=== PATIENT | female | born 1965 | race African-American/Black ===

== ENCOUNTER 2017-11-23 01:02 | Inpatient (IN) ==
[2017-11-23] MEDS ORDERED: GLUCAGON 1 MG VIAL IM PRN (02:41)
[2017-11-23] MEDS ORDERED: ACETAMINOPHEN 325 MG TABLET PO PRN (02:41)
[2017-11-23] MEDS ORDERED: DEXTROSE 50% 25 GM/50 ML VIAL IV PRN (02:41)
[2017-11-23] MEDS ORDERED: hydrALAZINE 20 MG/1 ML VIAL IV PRN (03:03)
[2017-11-23 03:30] LABS: Basophils % 0.3 % (0.0-0.8); Eosinophils # 0.1 10*3/uL (0.0-0.87); Eosinophils % 1.5 % (0.00-10.9); Hematocrit 34.2 VOL% (35.7-47.0); Hemoglobin 10.7 GM/DL (12.0-16.0); Immature Granulocytes % 0.3 %; Immature Granulocytes Absolute 0.03 #; Lymphocytes # 2.9 10*3/uL (1.4-4.0); Lymphocytes % 32.8 % (21.3-54.2); Mean Corpuscular HGB Conc 31.3 GM/DL (32-36); Mean Corpuscular Hemoglobin 28 PG (27-34); Mean Corpuscular Volume 89.5 FL (87-102); Monocytes # 0.5 10*3/uL (0.11-0.8); Monocytes % 6.1 % (1.7-12.7); Neutrophils # 5.2 10*3/uL (1.4-7.4); Platelet Count 296 T/CUMM (130-400); Red Blood Count 3.82 MC/CUMM (3.8-5.5); Red Cell Distribution Width 13.2 % (9.3-17.3); White Blood Count 8.9 T/CUMM (4-12)
[2017-11-23 03:43] LABS: Calcium 8.5 MG/DL (8.5-10.1); Osmolality,Calculated 291.4 MOS/KG (273-304); Potassium 4.2 MMOL/L (3.5-5.1)
[2017-11-23] MEDS ORDERED: LOSARTAN 50 MG TABLET PO SCH (09:00)
[2017-11-23] MEDS ORDERED: LABETALOL 200 MG TABLET PO SCH ×2 (09:00→09:30)
[2017-11-23] MEDS: GABAPENTIN 400 MG CAPSULE PO SCH ×2 (09:15→21:19)
[2017-11-23] MEDS: PANTOPRAZOLE 40 MG TABLET PO SCH (09:15)
[2017-11-23] MEDS: hydroCHLOROthiazide 25 MG TABLET PO SCH (09:15)
[2017-11-23] MEDS: FERROUS SULFATE 325 MG TABLET PO SCH ×2 (09:16→21:19)
[2017-11-23] MEDS ORDERED: FUROSEMIDE 20 MG TABLET PO SCH (14:00)
[2017-11-23] MEDS: LABETALOL 100 MG/20 ML VIAL IV PRN ×2 (17:08→23:49)
[2017-11-23] MEDS: ALPRAZolam 0.25 MG TABLET PO PRN (17:49)
[2017-11-23] MEDS ORDERED: cloNIDine 0.1 MG/24 HR PATCH TRANSDERM SCH (20:00)
[2017-11-23] MEDS ORDERED: INSULIN GLARGINE 100 UNIT/ML SUBCUT SCH (21:00)
[2017-11-23] MEDS: LABETALOL 200 MG TABLET PO SCH (21:19)
[2017-11-24 00:58] LABS: Calcium 8.6 MG/DL (8.5-10.1); Potassium 4.2 MMOL/L (3.5-5.1)
[2017-11-24 06:28] LABS: Calcium 8.8 MG/DL (8.5-10.1); Osmolality,Calculated 287.4 MOS/KG (273-304); Potassium 4.2 MMOL/L (3.5-5.1)
[2017-11-24] MEDS: XIGDUO PO SCH (09:41)
[2017-11-24] MEDS: hydroCHLOROthiazide 25 MG TABLET PO SCH (09:42)
[2017-11-24] MEDS: LABETALOL 200 MG TABLET PO SCH ×3 (09:42→21:53)
[2017-11-24] MEDS: GABAPENTIN 400 MG CAPSULE PO SCH ×2 (09:42→21:52)
[2017-11-24] MEDS: FERROUS SULFATE 325 MG TABLET PO SCH ×2 (09:42→21:53)
[2017-11-24] MEDS: IRBESARTAN 150 MG TABLET PO SCH (10:00)
[2017-11-24] MEDS: PANTOPRAZOLE 40 MG TABLET PO SCH (10:00)
[2017-11-24] MEDS: ONDANSETRON 4 MG/2 ML VIAL IV PRN (12:55)
[2017-11-24] MEDS: MINOXIDIL 2.5 MG TABLET PO SCH (13:24)
[2017-11-24] MEDS ORDERED: SODIUM CHLORIDE 0.9% 500 ML IV ONE (19:08)
[2017-11-24] MEDS: INSULIN GLARGINE 100 UNIT/ML SUBCUT SCH (21:51)
[2017-11-25 04:57] LABS: Basophils % 0.1 % (0.0-0.8); Eosinophils # 0.1 10*3/uL (0.0-0.87); Eosinophils % 1.7 % (0.00-10.9); Hematocrit 31.7 VOL% (35.7-47.0); Immature Granulocytes % 0.4 %; Immature Granulocytes Absolute 0.03 #; Lymphocytes # 2.1 10*3/uL (1.4-4.0); Lymphocytes % 27.1 % (21.3-54.2); Mean Corpuscular HGB Conc 31.5 GM/DL (32-36); Mean Corpuscular Hemoglobin 28 PG (27-34); Mean Corpuscular Volume 89.8 FL (87-102); Mean Platelet Volume 11.8 FL (9.6-12.0); Monocytes # 0.4 10*3/uL (0.11-0.8); Monocytes % 5.4 % (1.7-12.7); Neutrophils # 4.9 10*3/uL (1.4-7.4); Neutrophils % 65.3 % (38.7-73.9); Platelet Count 265 T/CUMM (130-400); Red Blood Count 3.53 MC/CUMM (3.8-5.5); White Blood Count 7.6 T/CUMM (4-12)
[2017-11-25 05:21] LABS: Calcium 8.4 MG/DL (8.5-10.1); Osmolality,Calculated 291.4 MOS/KG (273-304); Potassium 4.6 MMOL/L (3.5-5.1)
[2017-11-25 05:25] LABS: % Iron Saturation 14.8 % (18-50); Ferritin 118.5 ng/ml (8-252)
[2017-11-25 05:35] LABS: Folate 14.7 NG/ML (5.4-24.0); Vitamin B12 514 PG/ML (211-911)
[2017-11-25 07:51] LABS: Apearance,Urine CLOUDY (Clear); Bilirubin,Urine Negative (Negative); Blood, Urine Negative (Negative); Glucose,Urine (UA) >=500 mg/dL (Negative); Ketones,Urine Negative (Negative); Mucus,Urine Occasional /LPF (Occasional); Nitrite,Urine Negative (Negative); Protein,Urine >=500 MG/DL; Squamous Epithelial Cell,Urine Occasional /HPF (0-10); Urine Color Yellow (Yellow); Urine Specific Gravity 1.015 (1.001-1.035); Urine Urobilinogen < 2.0 EU/DL (0.2-1.0); WBC,Urine <1 /HPF (0-6)
[2017-11-25] MEDS: XIGDUO PO SCH (08:46)
[2017-11-25 08:47] LABS: Hemoglobin A1 (Alkaline) 96.9 % (96.5-98.5); Hemoglobin A2 (Alkaline) 3.1 % (1.5-3.5)
[2017-11-25] MEDS: PANTOPRAZOLE 40 MG TABLET PO SCH (08:47)
[2017-11-25] MEDS: FERROUS SULFATE 325 MG TABLET PO SCH ×2 (08:47→20:50)
[2017-11-25] MEDS: GABAPENTIN 400 MG CAPSULE PO SCH ×2 (08:51→20:51)
[2017-11-25] MEDS: IRBESARTAN 150 MG TABLET PO SCH (08:51)
[2017-11-25] MEDS: LABETALOL 200 MG TABLET PO SCH ×3 (08:51→20:50)
[2017-11-25] MEDS: MINOXIDIL 2.5 MG TABLET PO SCH (08:51)
[2017-11-25 08:52] LABS: Sedimentation Rate-Westergren 85 MM/HR (0-20)
[2017-11-25] MEDS: INSULIN GLARGINE 100 UNIT/ML SUBCUT SCH (21:03)
[2017-11-26 05:09] LABS: Basophils % 0.2 % (0.0-0.8); Eosinophils # 0.2 10*3/uL (0.0-0.87); Eosinophils % 1.7 % (0.00-10.9); Hematocrit 31.2 VOL% (35.7-47.0); Hemoglobin 9.7 GM/DL (12.0-16.0); Immature Granulocytes % 1.1 %; Lymphocytes # 2.2 10*3/uL (1.4-4.0); Lymphocytes % 25.3 % (21.3-54.2); Mean Corpuscular HGB Conc 31.1 GM/DL (32-36); Mean Corpuscular Hemoglobin 28 PG (27-34); Mean Corpuscular Volume 90.2 FL (87-102); Monocytes # 0.5 10*3/uL (0.11-0.8); Monocytes % 6.1 % (1.7-12.7); Neutrophils # 5.7 10*3/uL (1.4-7.4); Neutrophils % 65.6 % (38.7-73.9); Platelet Count 278 T/CUMM (130-400); Red Blood Count 3.46 MC/CUMM (3.8-5.5); White Blood Count 8.8 T/CUMM (4-12)
[2017-11-26 05:33] LABS: Calcium 8.1 MG/DL (8.5-10.1); Osmolality,Calculated 290.7 MOS/KG (273-304); Potassium 4.5 MMOL/L (3.5-5.1)
[2017-11-26] MEDS: PANTOPRAZOLE 40 MG TABLET PO SCH (08:41)
[2017-11-26] MEDS: hydroCHLOROthiazide 25 MG TABLET PO SCH (08:42)
[2017-11-26] MEDS: XIGDUO PO SCH (08:42)
[2017-11-26] MEDS: GABAPENTIN 400 MG CAPSULE PO SCH ×2 (08:42→20:09)
[2017-11-26] MEDS: FERROUS SULFATE 325 MG TABLET PO SCH ×2 (08:42→20:09)
[2017-11-26] MEDS: METOPROLOL SUCCINATE XL 100 MG TABLET PO SCH (08:42)
[2017-11-26] MEDS: IRBESARTAN 150 MG TABLET PO SCH (09:45)
[2017-11-26] MEDS: SODIUM CHLORIDE 0.45% 1,000 ML IV SCH ×2 (10:06→23:58)
[2017-11-26] MEDS: INSULIN REGULAR 100 UNIT/ML SUBCUT SCH ×3 (12:17→20:08)
[2017-11-26] MEDS: INSULIN GLARGINE 100 UNIT/ML SUBCUT SCH (20:08)
[2017-11-27 04:53] LABS: Calcium 8.3 MG/DL (8.5-10.1); Osmolality,Calculated 290.4 MOS/KG (273-304); Potassium 4.1 MMOL/L (3.5-5.1)
[2017-11-27] MEDS: INSULIN REGULAR 100 UNIT/ML SUBCUT SCH ×4 (08:07→21:35)
[2017-11-27] MEDS ORDERED: OLMESARTAN 20 MG TABLET PO SCH (09:00)
[2017-11-27] MEDS: FERROUS SULFATE 325 MG TABLET PO SCH ×2 (09:59→21:33)
[2017-11-27] MEDS: GLIMEPIRIDE 2 MG TABLET PO SCH (09:59)
[2017-11-27] MEDS: hydroCHLOROthiazide 25 MG TABLET PO SCH (09:59)
[2017-11-27] MEDS: METOPROLOL SUCCINATE XL 100 MG TABLET PO SCH (09:59)
[2017-11-27] MEDS: PANTOPRAZOLE 40 MG TABLET PO SCH (09:59)
[2017-11-27] MEDS: GABAPENTIN 400 MG CAPSULE PO SCH ×2 (10:00→21:33)
[2017-11-27] MEDS: ONDANSETRON 4 MG/2 ML VIAL IV PRN (11:05)
[2017-11-27] MEDS: INSULIN GLARGINE 100 UNIT/ML SUBCUT SCH (21:36)
[2017-11-28] MEDS ORDERED: MAGNESIUM HYDROXIDE SUSP 30 ML UDCUP PO ONE (00:53)
[2017-11-28 05:25] LABS: Calcium 8.3 MG/DL (8.5-10.1); Osmolality,Calculated 283.7 MOS/KG (273-304); Potassium 4.6 MMOL/L (3.5-5.1)
[2017-11-28] MEDS: INSULIN REGULAR 100 UNIT/ML SUBCUT SCH ×4 (07:59→21:41)
[2017-11-28] MEDS: FERROUS SULFATE 325 MG TABLET PO SCH ×2 (09:02→21:41)
[2017-11-28] MEDS: PANTOPRAZOLE 40 MG TABLET PO SCH (09:02)
[2017-11-28] MEDS: METOPROLOL SUCCINATE XL 100 MG TABLET PO SCH (09:02)
[2017-11-28] MEDS: GABAPENTIN 400 MG CAPSULE PO SCH ×2 (09:02→21:39)
[2017-11-28] MEDS: GLIMEPIRIDE 2 MG TABLET PO SCH (09:02)
[2017-11-28] MEDS: cloNIDine 0.1 MG TABLET PO PRN (19:50)
[2017-11-28] MEDS: VALSARTAN 160 MG TABLET PO SCH (21:43)
[2017-11-28] MEDS: INSULIN GLARGINE 100 UNIT/ML SUBCUT SCH (21:53)
[2017-11-28] MEDS: ALPRAZolam 0.25 MG TABLET PO PRN (21:55)
[2017-11-29] MEDS: cloNIDine 0.1 MG TABLET PO PRN ×2 (00:14→04:15)
[2017-11-29] MEDS: ALPRAZolam 0.25 MG TABLET PO PRN (04:16)
[2017-11-29] MEDS: GABAPENTIN 400 MG CAPSULE PO SCH ×2 (08:34→22:30)
[2017-11-29] MEDS: GLIMEPIRIDE 2 MG TABLET PO SCH (08:34)
[2017-11-29] MEDS: FERROUS SULFATE 325 MG TABLET PO SCH ×2 (08:35→22:29)
[2017-11-29] MEDS: PANTOPRAZOLE 40 MG TABLET PO SCH (08:35)
[2017-11-29] MEDS: VALSARTAN 160 MG TABLET PO SCH (08:35)
[2017-11-29] MEDS: METOPROLOL SUCCINATE XL 100 MG TABLET PO SCH (08:35)
[2017-11-29] MEDS ORDERED: CARVEDILOL 25 MG TABLET PO ONE (15:04)
[2017-11-29] MEDS ORDERED: LABETALOL 100 MG/20 ML VIAL IV ONE ×2 (15:05→18:06)
[2017-11-29] MEDS: FUROSEMIDE 40 MG TABLET PO SCH (15:57)
[2017-11-29] MEDS: MINOXIDIL 2.5 MG TABLET PO SCH (15:57)
[2017-11-29] MEDS: INSULIN REGULAR 100 UNIT/ML SUBCUT SCH ×4 (15:58→22:30)
[2017-11-29] MEDS: CARVEDILOL 25 MG TABLET PO SCH (22:30)
[2017-11-29] MEDS: INSULIN GLARGINE 100 UNIT/ML SUBCUT SCH (22:30)
[2017-11-30 04:46] LABS: Basophils % 0.3 % (0.0-0.8); Eosinophils # 0.2 10*3/uL (0.0-0.87); Eosinophils % 2.2 % (0.00-10.9); Hemoglobin 10.5 GM/DL (12.0-16.0); Immature Granulocytes % 0.3 %; Immature Granulocytes Absolute 0.02 #; Lymphocytes # 2.3 10*3/uL (1.4-4.0); Lymphocytes % 31.7 % (21.3-54.2); Mean Corpuscular HGB Conc 32.8 GM/DL (32-36); Mean Corpuscular Hemoglobin 28 PG (27-34); Mean Corpuscular Volume 85.3 FL (87-102); Mean Platelet Volume 12.3 FL (9.6-12.0); Monocytes # 0.6 10*3/uL (0.11-0.8); Monocytes % 8.5 % (1.7-12.7); Neutrophils # 4.2 10*3/uL (1.4-7.4); Platelet Count 304 T/CUMM (130-400); Red Blood Count 3.75 MC/CUMM (3.8-5.5); Red Cell Distribution Width 12.7 % (9.3-17.3); White Blood Count 7.3 T/CUMM (4-12)
[2017-11-30 05:22] LABS: Calcium 8.7 MG/DL (8.5-10.1); Osmolality,Calculated 291.3 MOS/KG (273-304); Potassium 4.1 MMOL/L (3.5-5.1)
[2017-11-30] MEDS: CARVEDILOL 25 MG TABLET PO SCH ×2 (10:04→21:18)
[2017-11-30] MEDS: PANTOPRAZOLE 40 MG TABLET PO SCH (10:05)
[2017-11-30] MEDS: MINOXIDIL 2.5 MG TABLET PO SCH (10:05)
[2017-11-30] MEDS: FUROSEMIDE 40 MG TABLET PO SCH (10:05)
[2017-11-30] MEDS: FERROUS SULFATE 325 MG TABLET PO SCH ×2 (10:05→21:18)
[2017-11-30] MEDS: GLIMEPIRIDE 2 MG TABLET PO SCH (10:05)
[2017-11-30] MEDS: GABAPENTIN 400 MG CAPSULE PO SCH ×2 (10:06→21:18)
[2017-11-30] MEDS: INSULIN REGULAR 100 UNIT/ML SUBCUT SCH ×3 (13:33→21:18)
[2017-11-30] MEDS: INSULIN GLARGINE 100 UNIT/ML SUBCUT SCH (21:19)
[2017-12-01 05:47] LABS: Calcium 8.6 MG/DL (8.5-10.1); Osmolality,Calculated 293.3 MOS/KG (273-304); Potassium 4.2 MMOL/L (3.5-5.1)
[2017-12-01] MEDS: CARVEDILOL 25 MG TABLET PO SCH ×2 (08:53→21:04)
[2017-12-01] MEDS: FERROUS SULFATE 325 MG TABLET PO SCH ×2 (08:54→21:04)
[2017-12-01] MEDS: FUROSEMIDE 40 MG TABLET PO SCH (08:54)
[2017-12-01] MEDS: PANTOPRAZOLE 40 MG TABLET PO SCH (08:55)
[2017-12-01] MEDS: GABAPENTIN 400 MG CAPSULE PO SCH ×2 (08:59→21:04)
[2017-12-01] MEDS: MINOXIDIL 2.5 MG TABLET PO SCH ×2 (08:59→12:36)
[2017-12-01] MEDS: GLIMEPIRIDE 2 MG TABLET PO SCH (09:05)
[2017-12-01] MEDS: INSULIN REGULAR 100 UNIT/ML SUBCUT SCH ×3 (09:47→17:38)
[2017-12-01] MEDS: INSULIN GLARGINE 100 UNIT/ML SUBCUT SCH (21:04)
[2017-12-02] MEDS: INSULIN REGULAR 100 UNIT/ML SUBCUT SCH ×5 (00:35→20:21)
[2017-12-02] MEDS: PANTOPRAZOLE 40 MG TABLET PO SCH (09:35)
[2017-12-02] MEDS: FERROUS SULFATE 325 MG TABLET PO SCH ×2 (09:35→20:20)
[2017-12-02] MEDS: GLIMEPIRIDE 2 MG TABLET PO SCH (09:35)
[2017-12-02] MEDS: FUROSEMIDE 40 MG TABLET PO SCH (09:37)
[2017-12-02] MEDS: CARVEDILOL 25 MG TABLET PO SCH ×2 (09:37→20:20)
[2017-12-02] MEDS: GABAPENTIN 400 MG CAPSULE PO SCH ×2 (09:38→20:20)
[2017-12-02] MEDS: LOSARTAN 50 MG TABLET PO SCH (14:09)
[2017-12-02] MEDS: CHLORTHALIDONE 25 MG TABLET PO SCH (14:10)
[2017-12-02] MEDS: INSULIN GLARGINE 100 UNIT/ML SUBCUT SCH (20:20)
[2017-12-03 04:41] LABS: Calcium 8.2 MG/DL (8.5-10.1); Osmolality,Calculated 292.3 MOS/KG (273-304)
[2017-12-03] MEDS: INSULIN REGULAR 100 UNIT/ML SUBCUT SCH ×4 (08:31→21:26)
[2017-12-03] MEDS: PANTOPRAZOLE 40 MG TABLET PO SCH (09:10)
[2017-12-03] MEDS: GLIMEPIRIDE 2 MG TABLET PO SCH (09:10)
[2017-12-03] MEDS: FERROUS SULFATE 325 MG TABLET PO SCH ×2 (09:11→21:17)
[2017-12-03] MEDS: LOSARTAN 50 MG TABLET PO SCH (09:11)
[2017-12-03] MEDS: CHLORTHALIDONE 25 MG TABLET PO SCH (09:11)
[2017-12-03] MEDS: CARVEDILOL 25 MG TABLET PO SCH ×2 (09:11→21:18)
[2017-12-03] MEDS: GABAPENTIN 400 MG CAPSULE PO SCH ×2 (09:12→21:17)
[2017-12-03] MEDS ORDERED: hydrALAZINE 25 MG TABLET PO ONE (12:11)
[2017-12-03] MEDS ORDERED: LABETALOL 20 MG/4 ML SYRINGE IV ONE ×2 (12:30→15:58)
[2017-12-03] MEDS ORDERED: cloNIDine 0.1 MG TABLET PO ONE ×2 (13:49→15:27)
[2017-12-03] MEDS ORDERED: LORazepam 2 MG/1 ML VIAL IV ONE (15:27)
[2017-12-03] MEDS ORDERED: CLORAZEPATE 3.75 MG TABLET PO PRN ×2 (15:56→16:03)
[2017-12-03] MEDS ORDERED: hydrALAZINE 20 MG/1 ML VIAL IV PRN ×2 (15:58→16:04)
[2017-12-03] MEDS ORDERED: LABETALOL 100 MG/20 ML VIAL IV ONE (16:04)
[2017-12-03] MEDS: INSULIN GLARGINE 100 UNIT/ML SUBCUT SCH (21:17)
[2017-12-04 06:00] LABS: Calcium 8.6 MG/DL (8.5-10.1); Potassium 4.1 MMOL/L (3.5-5.1)
[2017-12-04 08:06] VITALS: BP 161/74
[2017-12-04] MEDS: INSULIN REGULAR 100 UNIT/ML SUBCUT SCH (08:16)
[2017-12-04] MEDS: GLIMEPIRIDE 2 MG TABLET PO SCH (08:28)
[2017-12-04] MEDS: CARVEDILOL 25 MG TABLET PO SCH (08:28)
[2017-12-04] MEDS: LOSARTAN 50 MG TABLET PO SCH (08:28)
[2017-12-04] MEDS: FERROUS SULFATE 325 MG TABLET PO SCH (08:29)
[2017-12-04] MEDS: CHLORTHALIDONE 25 MG TABLET PO SCH (08:29)
[2017-12-04] MEDS: GABAPENTIN 400 MG CAPSULE PO SCH (08:29)
[2017-12-04] MEDS: PANTOPRAZOLE 40 MG TABLET PO SCH (08:30)
[2017-12-04 09:16] LABS: Alanine Aminotransferase 24 U/L (13-56); Albumin 2.9 G/DL (3.4-5.0); Alkaline Phosphatase 98 U/L (45-117); Aspartate Amino Transferase 12 U/L (0-37); Bilirubin,Total < 0.39 MG/DL (0.2-1.0); Blood Urea Nitrogen 32 MG/DL (7-18); Calcium 8.9 MG/DL (8.5-10.1); Glucose 109 MG/DL (74-106); Osmolality,Calculated 290.1 MOS/KG (273-304); Potassium 4.1 MMOL/L (3.5-5.1); Sodium 142 MMOL/L (136-145); Total Protein 7.6 G/DL (6.4-8.3)
[2017-12-10 10:23] LABS: Renin Activity < 0.6 ng/mL/h
== END 2017-12-04 11:39 | disposition home or self-care (01) | DRG 305 ==
LOC: EDBD → EDUNIT# → N.ED 01:02 → N.EDINP 01:02 → N.2E 03:29 → N.ICU 11-24 00:20 → N.TELEN 11-26 12:36 → SUATTDRO 11-27 14:39
PROVIDERS: ADMIT Hospitalist; ATTEND Internal Medicine

== ENCOUNTER 2019-07-27 17:25 | Inpatient (IN) ==
[2019-07-27] MEDS ORDERED: ONDANSETRON 4 MG/2 ML VIAL IV STA ×2 (18:47→20:23)
[2019-07-27] MEDS ORDERED: methylPREDNISolone SOD SUC 125 MG/2 ML VIAL IV STA (18:47)
[2019-07-27] MEDS ORDERED: NITROGLYCERIN 2% OINT 1 INCH/GM PACK TOP STA (18:47)
[2019-07-27] MEDS ORDERED: FUROSEMIDE 100 MG/10 ML VIAL IV STA (18:47)
[2019-07-27] MEDS ORDERED: hydrALAZINE 20 MG/1 ML VIAL IV STA ×2 (18:47→20:23)
[2019-07-27 19:26] LABS: Basophils % 0.2 % (0.0-0.8); Hematocrit 40.4 VOL% (35.7-47.0); Hemoglobin 12.3 GM/DL (12.0-16.0); Immature Granulocytes % 0.4 %; Immature Granulocytes Absolute 0.02 #; Lymphocytes # 1.7 10*3/uL (1.4-4.0); Lymphocytes % 30.4 % (21.3-54.2); Mean Corpuscular HGB Conc 30.4 GM/DL (32-36); Mean Platelet Volume 12.3 FL (9.6-12.0); Monocytes % 13.7 % (1.7-12.7); Neutrophils % 55.3 % (38.7-73.9); Platelet Count 214 T/CUMM (130-400); Red Blood Count 4.44 MC/CUMM (3.8-5.5); Red Cell Distribution Width 12.8 % (9.3-17.3); White Blood Count 5.5 T/CUMM (4-12)
[2019-07-27 19:35] LABS: PT Patient Result 10.8 SECS (9.8-11.9)
[2019-07-27 19:53] LABS: Alanine Aminotransferase 22 U/L (13-56); Albumin 2.6 G/DL (3.4-5.0); Alkaline Phosphatase 102 U/L (45-117); Amylase 42 U/L (25-115); Aspartate Amino Transferase 32 U/L (0-37); Bilirubin,Total < 0.39 MG/DL (0.2-1.0); Blood Urea Nitrogen 31 MG/DL (7-18); Calcium 7.9 MG/DL (8.5-10.1); Estimated Glom Filtration Rate 20 ML/MIN; Ferritin 402.7 ng/ml (8-252); Glucose 173 MG/DL (74-106); Osmolality,Calculated 280.1 MOS/KG (273-304); Total Protein 7.1 G/DL (6.4-8.3)
[2019-07-27] MEDS ORDERED: NITROPRUSSIDE 100 MG in DEXTROSE 5% 246 ML IV PRN (19:54)
[2019-07-27] MEDS ORDERED: PROMETHAZINE 25 MG/1 ML VIAL ONE (20:28)
[2019-07-27] MEDS ORDERED: PROMETHAZINE 25 MG/1 ML VIAL IM STA (20:35)
[2019-07-28] MEDS ORDERED: GLUCAGON 1 MG VIAL IM PRN (01:31)
[2019-07-28] MEDS ORDERED: ZALEPLON 5 MG CAPSULE PO PRN (01:31)
[2019-07-28] MEDS ORDERED: DEXTROSE 10% 250 ML BAG IV PRN (01:31)
[2019-07-28] MEDS ORDERED: MAGNESIUM SULF RIDER 2 GM in PREMIX 1 EACH IV PRN (01:40)
[2019-07-28] MEDS ORDERED: MAGNESIUM SULF RIDER 4 GM in PREMIX 1 EACH IV PRN (01:40)
[2019-07-28] MEDS: hydrALAZINE 20 MG/1 ML VIAL IV PRN ×2 (03:41→08:57)
[2019-07-28] MEDS: ENOXAPARIN 30 MG/0.3 ML SYRINGE SUBCUT SCH (08:57)
[2019-07-28] MEDS: FUROSEMIDE 40 MG/4 ML VIAL IV SCH ×2 (08:57→15:25)
[2019-07-28] MEDS: PANTOPRAZOLE 40 MG TABLET PO SCH (08:57)
[2019-07-28] MEDS: INSULIN REGULAR 100 UNIT/ML SUBCUT SCH ×4 (08:57→20:57)
[2019-07-28] MEDS ORDERED: cloNIDine 0.1 MG TABLET PO SCH (09:00)
[2019-07-28] MEDS: cloNIDine 0.1 MG TABLET PO SCH ×3 (09:13→20:52)
[2019-07-28] MEDS: ACETAMINOPHEN 325 MG TABLET PO PRN (10:27)
[2019-07-28 11:58] LABS: Hematocrit 36.6 VOL% (35.7-47.0); Hemoglobin 11.3 GM/DL (12.0-16.0); Immature Granulocytes % 0.2 %; Immature Granulocytes Absolute 0.01 #; Lymphocytes # 0.9 10*3/uL (1.4-4.0); Lymphocytes % 17.5 % (21.3-54.2); Mean Corpuscular HGB Conc 30.9 GM/DL (32-36); Mean Corpuscular Volume 89.9 FL (87-102); Mean Platelet Volume 12.5 FL (9.6-12.0); Monocytes % 9.5 % (1.7-12.7); Neutrophils % 72.8 % (38.7-73.9); Platelet Count 200 T/CUMM (130-400); Red Blood Count 4.07 MC/CUMM (3.8-5.5); Red Cell Distribution Width 12.8 % (9.3-17.3); White Blood Count 5.4 T/CUMM (4-12)
[2019-07-28 12:09] LABS: Alanine Aminotransferase 17 U/L (13-56); Albumin 2.1 G/DL (3.4-5.0); Alkaline Phosphatase 83 U/L (45-117); Aspartate Amino Transferase 27 U/L (0-37); Bilirubin,Total < 0.39 MG/DL (0.2-1.0); Blood Urea Nitrogen 47 MG/DL (7-18); Calcium 7.4 MG/DL (8.5-10.1); Estimated Glom Filtration Rate 14 ML/MIN; Glucose 257 MG/DL (74-106); Total Protein 6.7 G/DL (6.4-8.3)
[2019-07-28 12:24] LABS: Ferritin 425.8 ng/ml (8-252)
[2019-07-28] MEDS ORDERED: HydrOXYzine PAMOATE 25 MG CAPSULE PO PRN (12:40)
[2019-07-28] MEDS: INSULIN GLARGINE 100 UNIT/ML SUBCUT SCH (14:13)
[2019-07-28] MEDS: DULoxetine 30 MG CAPSULE PO SCH (14:13)
[2019-07-28 14:45] LABS: Apearance,Urine Slightly Hazy (Clear); Bacteria,Urine Occasional /HPF (Few); Bilirubin,Urine Negative (Negative); Blood, Urine Negative (Negative); Glucose,Urine (UA) >=500 mg/dL (Negative); Ketones,Urine Negative (Negative); Mucus,Urine Occasional /LPF (Occasional); Nitrite,Urine Negative (Negative); Protein,Urine >=500 MG/DL; RBC,Urine 2 /HPF (0-4); Squamous Epithelial Cell,Urine Occasional /HPF (0-10); Urine Color Yellow (Yellow); Urine Specific Gravity 1.013 (1.001-1.035); Urine Urobilinogen < 2.0 EU/DL (0.2-1.0); WBC,Urine 1 /HPF (0-6)
[2019-07-28] MEDS ORDERED: SODIUM CHLORIDE 0.9% 500 ML IV ONE (16:29)
[2019-07-28] MEDS: FERROUS SULFATE 325 MG TABLET PO SCH (21:09)
[2019-07-29] MEDS: ACETAMINOPHEN 325 MG TABLET PO PRN ×3 (04:33→15:31)
[2019-07-29 05:17] LABS: Calcium 7.1 MG/DL (8.5-10.1); Osmolality,Calculated 289.7 MOS/KG (273-304)
[2019-07-29] MEDS ORDERED: GLIMEPIRIDE 2 MG TABLET PO SCH (09:00)
[2019-07-29] MEDS: INSULIN REGULAR 100 UNIT/ML SUBCUT SCH ×4 (09:02→21:01)
[2019-07-29] MEDS: PANTOPRAZOLE 40 MG TABLET PO SCH (09:03)
[2019-07-29] MEDS: METOPROLOL TARTRATE 100 MG TABLET PO SCH (09:03)
[2019-07-29] MEDS: INSULIN GLARGINE 100 UNIT/ML SUBCUT SCH (09:03)
[2019-07-29] MEDS: cloNIDine 0.1 MG TABLET PO SCH ×3 (09:03→20:20)
[2019-07-29] MEDS: DULoxetine 30 MG CAPSULE PO SCH (09:03)
[2019-07-29] MEDS: FERROUS SULFATE 325 MG TABLET PO SCH ×2 (09:03→20:19)
[2019-07-29] MEDS: ENOXAPARIN 30 MG/0.3 ML SYRINGE SUBCUT SCH (09:03)
[2019-07-29] MEDS: ONDANSETRON 4 MG/2 ML VIAL IV PRN ×2 (10:30→14:19)
[2019-07-29] MEDS: SODIUM CHLORIDE 0.45% 1,000 ML IV SCH (11:07)
[2019-07-30] MEDS: ACETAMINOPHEN 325 MG TABLET PO PRN ×4 (00:07→23:03)
[2019-07-30] MEDS: SODIUM CHLORIDE 0.45% 1,000 ML IV SCH ×2 (00:55→13:33)
[2019-07-30 06:39] LABS: Basophils % 0.1 % (0.0-0.8); Hematocrit 33.1 VOL% (35.7-47.0); Immature Granulocytes % 0.4 %; Immature Granulocytes Absolute 0.03 #; Lymphocytes % 25.9 % (21.3-54.2); Mean Corpuscular HGB Conc 30.2 GM/DL (32-36); Mean Corpuscular Volume 90.7 FL (87-102); Mean Platelet Volume 12.7 FL (9.6-12.0); Monocytes % 7.4 % (1.7-12.7); Neutrophils % 66.2 % (38.7-73.9); Platelet Count 161 T/CUMM (130-400); Red Blood Count 3.65 MC/CUMM (3.8-5.5); Red Cell Distribution Width 13.2 % (9.3-17.3); White Blood Count 7.7 T/CUMM (4-12)
[2019-07-30 06:50] LABS: Calcium 6.7 MG/DL (8.5-10.1); Osmolality,Calculated 282.4 MOS/KG (273-304)
[2019-07-30] MEDS: INSULIN REGULAR 100 UNIT/ML SUBCUT SCH ×4 (09:00→22:54)
[2019-07-30] MEDS: FERROUS SULFATE 325 MG TABLET PO SCH ×2 (09:30→22:40)
[2019-07-30] MEDS: DULoxetine 30 MG CAPSULE PO SCH (09:30)
[2019-07-30] MEDS: ENOXAPARIN 30 MG/0.3 ML SYRINGE SUBCUT SCH (09:30)
[2019-07-30] MEDS: METOPROLOL TARTRATE 100 MG TABLET PO SCH (09:30)
[2019-07-30] MEDS: cloNIDine 0.1 MG TABLET PO SCH ×3 (09:30→22:40)
[2019-07-30] MEDS: PANTOPRAZOLE 40 MG TABLET PO SCH (09:30)
[2019-07-30] MEDS: ONDANSETRON 4 MG/2 ML VIAL IV PRN (12:20)
[2019-07-31] MEDS: guaiFENesin 200 MG/10 ML UDCUP PO PRN ×2 (00:13→20:07)
[2019-07-31] MEDS: SODIUM CHLORIDE 0.45% 1,000 ML IV SCH ×2 (02:56→14:49)
[2019-07-31 05:55] LABS: Basophils % 0.1 % (0.0-0.8); Hematocrit 38.1 VOL% (35.7-47.0); Hemoglobin 11.8 GM/DL (12.0-16.0); Immature Granulocytes % 0.6 %; Immature Granulocytes Absolute 0.04 #; Lymphocytes # 1.7 10*3/uL (1.4-4.0); Lymphocytes % 24.5 % (21.3-54.2); Mean Corpuscular Volume 87.4 FL (87-102); Mean Platelet Volume 12.8 FL (9.6-12.0); Monocytes % 5.6 % (1.7-12.7); Neutrophils % 69.2 % (38.7-73.9); Platelet Count 175 T/CUMM (130-400); Red Blood Count 4.36 MC/CUMM (3.8-5.5); White Blood Count 7.1 T/CUMM (4-12)
[2019-07-31 06:10] LABS: Calcium 6.9 MG/DL (8.5-10.1); Osmolality,Calculated 282.8 MOS/KG (273-304)
[2019-07-31 06:55] LABS: Band Neutrophils 11 % (0-10); Lymphocytes 23 % (20-55); Platelet Estimate Normal; Segmented Neutrophils 62 % (50-85); Total Cells Counted 100
[2019-07-31] MEDS: cloNIDine 0.1 MG TABLET PO SCH ×3 (08:20→22:05)
[2019-07-31] MEDS: METOPROLOL TARTRATE 100 MG TABLET PO SCH (08:20)
[2019-07-31] MEDS: DULoxetine 30 MG CAPSULE PO SCH (08:20)
[2019-07-31] MEDS: FERROUS SULFATE 325 MG TABLET PO SCH (08:20)
[2019-07-31] MEDS: PANTOPRAZOLE 40 MG TABLET PO SCH (08:20)
[2019-07-31] MEDS: INSULIN REGULAR 100 UNIT/ML SUBCUT SCH ×4 (09:45→22:17)
[2019-07-31] MEDS: INSULIN GLARGINE 100 UNIT/ML SUBCUT SCH ×2 (10:24→10:25)
[2019-07-31] MEDS: HEPARIN 5,000 UNIT/1 ML VIAL SUBCUT SCH ×2 (13:33→22:05)
[2019-07-31] MEDS: ONDANSETRON 4 MG/2 ML VIAL IV PRN (18:43)
[2019-07-31] MEDS: ACETAMINOPHEN 325 MG TABLET PO PRN (19:40)
[2019-08-01] MEDS: SODIUM CHLORIDE 0.45% 1,000 ML IV SCH ×2 (01:38→13:41)
[2019-08-01] MEDS: HEPARIN 5,000 UNIT/1 ML VIAL SUBCUT SCH ×2 (03:45→21:19)
[2019-08-01 05:58] LABS: Basophils % 0.1 % (0.0-0.8); Hemoglobin 10.4 GM/DL (12.0-16.0); Immature Granulocytes % 0.8 %; Immature Granulocytes Absolute 0.07 #; Lymphocytes # 1.5 10*3/uL (1.4-4.0); Mean Corpuscular HGB Conc 31.5 GM/DL (32-36); Mean Corpuscular Volume 86.6 FL (87-102); Mean Platelet Volume 13.1 FL (9.6-12.0); Monocytes % 4.6 % (1.7-12.7); Neutrophils % 76.5 % (38.7-73.9); Platelet Count 216 T/CUMM (130-400); Red Blood Count 3.81 MC/CUMM (3.8-5.5); Red Cell Distribution Width 13.1 % (9.3-17.3); White Blood Count 8.4 T/CUMM (4-12)
[2019-08-01 06:33] LABS: Albumin 1.8 G/DL (3.4-5.0); Bilirubin,Total 0.5 MG/DL (0.2-1.0); Calcium 6.7 MG/DL (8.5-10.1); Ferritin 1131.2 ng/ml (8-252); Osmolality,Calculated 279.4 MOS/KG (273-304); Total Protein 6.6 G/DL (6.4-8.3)
[2019-08-01] MEDS: METOPROLOL TARTRATE 100 MG TABLET PO SCH (08:40)
[2019-08-01] MEDS: INSULIN REGULAR 100 UNIT/ML SUBCUT SCH ×4 (08:40→21:19)
[2019-08-01] MEDS: DULoxetine 30 MG CAPSULE PO SCH (08:40)
[2019-08-01] MEDS: PANTOPRAZOLE 40 MG TABLET PO SCH (08:40)
[2019-08-01] MEDS: cloNIDine 0.1 MG TABLET PO SCH ×3 (08:40→21:19)
[2019-08-01 12:20] LABS: PT Patient Result 10.3 SECS (9.8-11.9); Partial Thromboplastin Time 35.7 SECS (23.9-33.8)
[2019-08-01] MEDS ORDERED: SODIUM CHLORIDE 0.9% 1,000 ML IV PRN (14:51)
[2019-08-01] MEDS ORDERED: ALPRAZolam 0.25 MG TABLET PO ONE (22:09)
[2019-08-02 04:42] LABS: ABG Base Excess -7.6 MMOL/L (-2.5-2.5); ABG HCO3 18.1 MMOL/L (20-26); ABG Oxygen Saturation 90.9 % (95-100); ABG PCO2 33.7 MM HG (35-48); ABG PH 7.326 (7.35-7.45); ABG PO2 62.9 MM HG (80-95); ABG TCO2 16.2 MMOL/L (23-27); Allen Test Positive; Pt O2 Delivery Device Other
[2019-08-02] MEDS ORDERED: LORazepam 2 MG/1 ML VIAL IV PRN (05:23)
[2019-08-02 05:39] LABS: Calcium 6.6 MG/DL (8.5-10.1); Osmolality,Calculated 280.5 MOS/KG (273-304)
[2019-08-02] MEDS: SODIUM CHLORIDE 0.45% 1,000 ML IV SCH (06:28)
[2019-08-02 07:29] LABS: Basophils % 0.2 % (0.0-0.8); Hematocrit 32.8 VOL% (35.7-47.0); Hemoglobin 10.2 GM/DL (12.0-16.0); Immature Granulocytes % 0.9 %; Immature Granulocytes Absolute 0.11 #; Lymphocytes # 1.1 10*3/uL (1.4-4.0); Lymphocytes % 8.9 % (21.3-54.2); Mean Corpuscular HGB Conc 31.1 GM/DL (32-36); Mean Corpuscular Volume 87.7 FL (87-102); Mean Platelet Volume 12.9 FL (9.6-12.0); Monocytes % 3.3 % (1.7-12.7); Neutrophils % 86.7 % (38.7-73.9); Platelet Count 222 T/CUMM (130-400); Red Blood Count 3.74 MC/CUMM (3.8-5.5); Red Cell Distribution Width 13.2 % (9.3-17.3); White Blood Count 12.9 T/CUMM (4-12)
[2019-08-02] MEDS: INSULIN REGULAR 100 UNIT/ML SUBCUT SCH ×4 (08:25→21:05)
[2019-08-02] MEDS: cloNIDine 0.1 MG TABLET PO SCH ×3 (08:25→21:05)
[2019-08-02] MEDS: PANTOPRAZOLE 40 MG TABLET PO SCH (08:26)
[2019-08-02] MEDS: METOPROLOL TARTRATE 100 MG TABLET PO SCH (08:26)
[2019-08-02] MEDS: HEPARIN 5,000 UNIT/1 ML VIAL SUBCUT SCH ×2 (08:26→21:05)
[2019-08-02] MEDS: DULoxetine 30 MG CAPSULE PO SCH (08:26)
[2019-08-02] MEDS ORDERED: SODIUM CHLORIDE 0.9% 1,000 ML IV SCH (09:00)
[2019-08-02] MEDS ORDERED: CLINDAMYCIN INJ 900 MG in PREMIX 1 EACH IV ONE (09:10)
[2019-08-02] MEDS ORDERED: HEPARIN 5,000 UNIT/1 ML VIAL ONE (09:36)
[2019-08-02] MEDS ORDERED: LIDOCAINE 1%/EPI INJ 20 ML VIAL ONE (09:36)
[2019-08-02] MEDS ORDERED: BUPIVACAINE MPF 0.25% 30 ML VIAL ONE (09:36)
[2019-08-02] MEDS ORDERED: ALPRAZolam 0.5 MG TABLET PO PRN (10:42)
[2019-08-02] MEDS ORDERED: SUCCINYLCHOLINE 200 MG/10 ML VIAL ONE (15:29)
[2019-08-02] MEDS ORDERED: propofoL 200 MG/20 ML VIAL IV ONE (15:31)
[2019-08-02] MEDS ORDERED: SUCCINYLCHOLINE 200 MG/10 ML VIAL IV ONE (15:32)
[2019-08-02] MEDS ORDERED: HEPARIN 10,000 UNIT/10 ML VIAL IV SCH (16:00)
[2019-08-02 16:44] LABS: ABG Base Excess -12.6 MMOL/L (-2.5-2.5); ABG HCO3 12.4 MMOL/L (20-26); ABG PCO2 27.2 MM HG (35-48); ABG PH 7.277 (7.35-7.45); ABG PO2 150.1 MM HG (80-95); ABG TCO2 13.2 MMOL/L (23-27)
[2019-08-02 16:46] LABS: ABG Oxygen Saturation 98.7 % (95-100)
[2019-08-02] MEDS: NOREPINEPHRINE 8 MG in SODIUM CHLORIDE 0.9% 242 ML IV PRN (17:41)
[2019-08-02 17:43] LABS: Apearance,Urine CLOUDY (Clear); Bilirubin,Urine Negative (Negative); Blood, Urine Small mg/dL (Negative); Glucose,Urine (UA) 50 mg/dL (Negative); Ketones,Urine Negative (Negative); Mucus,Urine Occasional /LPF (Occasional); Nitrite,Urine Negative (Negative); Protein,Urine >=500 MG/DL; RBC,Urine 7 /HPF (0-4); Squamous Epithelial Cell,Urine Occasional /HPF (0-10); Urine Color Yellow (Yellow); Urine Specific Gravity 1.022 (1.001-1.035); Urine Urobilinogen < 2.0 EU/DL (0.2-1.0)
[2019-08-02 20:29] LABS: Hepatitis B Core IgM Quant 0.14 Index; Hepatitis B Surface Ag Quant < 0.10 Index; Hepatitis B Surface Ag Result Negative (Negative); Hepatitis C Virus Ab Quant 0.08 Index; Hepatitis C Virus Ab Result Negative (Negative)
[2019-08-03] MEDS: ACETAMINOPHEN 325 MG TABLET PO PRN ×3 (00:35→15:05)
[2019-08-03 04:42] LABS: ABG Base Excess -7.8 MMOL/L (-2.5-2.5); ABG HCO3 18.1 MMOL/L (20-26); ABG Oxygen Saturation 99.4 % (95-100); ABG PCO2 28.2 MM HG (35-48); ABG PH 7.373 (7.35-7.45); ABG TCO2 15.2 MMOL/L (23-27); Allen Test Positive; Pt O2 Delivery Device Ventilator
[2019-08-03 07:55] LABS: Basophils % 0.1 % (0.0-0.8); Eosinophils % 0.1 % (0.00-10.9); Hematocrit 26.6 VOL% (35.7-47.0); Immature Granulocytes % 0.9 %; Immature Granulocytes Absolute 0.14 #; Lymphocytes # 1.2 10*3/uL (1.4-4.0); Lymphocytes % 7.8 % (21.3-54.2); Mean Corpuscular HGB Conc 33.8 GM/DL (32-36); Mean Corpuscular Volume 85.8 FL (87-102); Mean Platelet Volume 12.9 FL (9.6-12.0); NRBC # 0.02 10*3/uL; Neutrophils % 89.1 % (38.7-73.9); Platelet Count 227 T/CUMM (130-400); Red Cell Distribution Width 13.6 % (9.3-17.3); White Blood Count 15.9 T/CUMM (4-12)
[2019-08-03 08:18] LABS: Band Neutrophils 5 % (0-10); Lymphocytes 5 % (20-55); Segmented Neutrophils 90 % (50-85); Total Cells Counted 100
[2019-08-03 08:19] LABS: Platelet Estimate Adequate
[2019-08-03] MEDS: cloNIDine 0.1 MG TABLET PO SCH ×3 (08:22→21:14)
[2019-08-03] MEDS: METOPROLOL TARTRATE 100 MG TABLET PO SCH (08:26)
[2019-08-03] MEDS ORDERED: DEXTROSE 50% 25 GM/50 ML VIAL IV PRN (08:28)
[2019-08-03] MEDS ORDERED: GLUCAGON 1 MG VIAL IM PRN (08:28)
[2019-08-03] MEDS: INSULIN REGULAR 100 UNIT/ML SUBCUT SCH ×4 (09:22→21:59)
[2019-08-03] MEDS: DULoxetine 30 MG CAPSULE PO SCH (09:22)
[2019-08-03] MEDS: HEPARIN 5,000 UNIT/1 ML VIAL SUBCUT SCH ×2 (09:23→21:14)
[2019-08-03] MEDS: PANTOPRAZOLE 40 MG VIAL IV SCH (09:24)
[2019-08-03 21:32] LABS: Calcium 5.9 MG/DL (8.5-10.1); Osmolality,Calculated 281.2 MOS/KG (273-304)
[2019-08-04 05:50] LABS: Osmolality,Calculated 279.5 MOS/KG (273-304)
[2019-08-04 06:03] LABS: Calcium 5.5 MG/DL (8.5-10.1)
[2019-08-04 08:55] LABS: ABG Base Excess -10.5 MMOL/L (-2.5-2.5); ABG Oxygen Saturation 99.2 % (95-100); ABG PCO2 29.1 MM HG (35-48); ABG PH 7.312 (7.35-7.45); ABG TCO2 13.7 MMOL/L (23-27); Allen Test Positive; Pt O2 Delivery Device Ventilator
[2019-08-04] MEDS: INSULIN REGULAR 100 UNIT/ML SUBCUT SCH ×4 (09:46→23:30)
[2019-08-04] MEDS: HEPARIN 5,000 UNIT/1 ML VIAL SUBCUT SCH ×2 (09:47→20:30)
[2019-08-04] MEDS: DULoxetine 30 MG CAPSULE PO SCH (09:47)
[2019-08-04] MEDS ORDERED: CALCIUM GLUCONATE 2,000 MG in SODIUM CHLORIDE 0.9% 100 ML IV ONE (10:00)
[2019-08-04] MEDS: PANTOPRAZOLE 40 MG VIAL IV SCH (12:32)
[2019-08-04] MEDS ORDERED: DEXTROSE 50% 25 GM/50 ML VIAL IV PRN (14:25)
[2019-08-05 06:16] LABS: Osmolality,Calculated 276.6 MOS/KG (273-304)
[2019-08-05] MEDS: INSULIN REGULAR 100 UNIT/ML SUBCUT SCH ×3 (06:17→19:16)
[2019-08-05 06:22] LABS: Calcium 5.8 MG/DL (8.5-10.1)
[2019-08-05] MEDS: HEPARIN 5,000 UNIT/1 ML VIAL SUBCUT SCH ×2 (08:39→20:22)
[2019-08-05] MEDS: PANTOPRAZOLE 40 MG VIAL IV SCH (08:40)
[2019-08-05] MEDS: DULoxetine 30 MG CAPSULE PO SCH (08:42)
[2019-08-05 10:37] LABS: ABG Base Excess -5.9 MMOL/L (-2.5-2.5); ABG HCO3 18.8 MMOL/L (20-26); ABG Oxygen Saturation 96.6 % (95-100); ABG PCO2 33.9 MM HG (35-48); ABG PH 7.362 (7.35-7.45); ABG PO2 97.1 MM HG (80-95); ABG TCO2 19.8 MMOL/L (23-27)
[2019-08-05] MEDS: fentaNYL INJ 1,250 MCG in SODIUM CHLORIDE 0.9% 225 ML IV PRN ×2 (11:21→22:42)
[2019-08-05] MEDS: ACETAMINOPHEN 325 MG TABLET PO PRN (20:30)
[2019-08-05] MEDS: ACETAMINOPHEN 650 MG SUPP RECTAL PRN (22:36)
[2019-08-06] MEDS: INSULIN REGULAR 100 UNIT/ML SUBCUT SCH ×5 (00:56→23:46)
[2019-08-06] MEDS: ACETAMINOPHEN 650 MG SUPP RECTAL PRN ×2 (01:55→21:22)
[2019-08-06] MEDS ORDERED: NOREPINEPHRINE 4 MG/4 ML VIAL IV ONE (03:05)
[2019-08-06 04:13] LABS: Calcium 6.1 MG/DL (8.5-10.1); Osmolality,Calculated 277.9 MOS/KG (273-304)
[2019-08-06] MEDS: NOREPINEPHRINE 8 MG in SODIUM CHLORIDE 0.9% 242 ML IV PRN ×2 (04:24→17:37)
[2019-08-06] MEDS ORDERED: SODIUM POLYSTYRENE SULFATE 15 GM/60 ML BOTTLE PO ONE (06:27)
[2019-08-06] MEDS: PANTOPRAZOLE 40 MG VIAL IV SCH (08:28)
[2019-08-06] MEDS: HEPARIN 5,000 UNIT/1 ML VIAL SUBCUT SCH ×2 (08:28→20:54)
[2019-08-06] MEDS: DULoxetine 30 MG CAPSULE PO SCH (08:29)
[2019-08-06] MEDS: fentaNYL INJ 1,250 MCG in SODIUM CHLORIDE 0.9% 225 ML IV PRN ×2 (10:01→21:20)
[2019-08-06] MEDS ORDERED: SODIUM ZIRCONIUM CYCLOSILICATE 10 GM PACK PO SCH (12:00)
[2019-08-06 23:47] VITALS: BP 102/62
[2019-08-07] MEDS: NOREPINEPHRINE 8 MG in SODIUM CHLORIDE 0.9% 242 ML IV PRN (00:27)
[2019-08-07] MEDS ORDERED: PHENYLEPHRINE DRIP 40 MG/250 ML PREMIX IV PRN (01:25)
[2019-08-07 01:26] LABS: Basophils # 0.1 10*3/uL (0.0-0.2); Basophils % 0.3 % (0.0-0.8); Eosinophils % 0.1 % (0.00-10.9); Hematocrit 26.6 VOL% (35.7-47.0); Hemoglobin 8.7 GM/DL (12.0-16.0); Immature Granulocytes % 11.4 %; Immature Granulocytes Absolute 3.63 #; Lymphocytes # 2.2 10*3/uL (1.4-4.0); Lymphocytes % 6.9 % (21.3-54.2); Mean Corpuscular HGB Conc 32.7 GM/DL (32-36); Mean Corpuscular Volume 86.1 FL (87-102); Monocytes % 3.8 % (1.7-12.7); NRBC # 0.27 10*3/uL; Neutrophils % 77.5 % (38.7-73.9); Platelet Count 405 T/CUMM (130-400); Red Blood Count 3.09 MC/CUMM (3.8-5.5); White Blood Count 31.7 T/CUMM (4-12)
[2019-08-07] MEDS ORDERED: CALCIUM CHLORIDE 1,000 MG/10 ML SYRINGE IV ONE ×2 (01:34)
[2019-08-07] MEDS ORDERED: SODIUM BICARBONATE 50 MEQ/50 ML VIAL IV ONE ×2 (01:34)
[2019-08-07 01:41] LABS: Calcium 6.7 MG/DL (8.5-10.1); Osmolality,Calculated 269.9 MOS/KG (273-304)
[2019-08-07 01:54] LABS: PT Patient Result 10.9 SECS (9.8-11.9); Partial Thromboplastin Time 32.1 SECS (23.9-33.8)
[2019-08-07 04:58] LABS: Band Neutrophils 20 % (0-10); Lymphocytes 10 % (20-55); Metamyelocytes 6 %; Nucleated Red Blood Cells 1 (0-5); Segmented Neutrophils 60 % (50-85); Total Cells Counted 100
[2019-08-07 04:59] LABS: Acanthocytes Few; Platelet Estimate Increased
[2019-08-07 05:02] LABS: Anisocytosis 3+; Hypochromasia 2+; Macrocytosis 1+; Microcytosis 2+; Ovalocytes 2+
[2019-08-07 05:03] LABS: Polychromasia Few
== END 2019-08-07 01:45 | disposition expired | DRG 207 ==
LOC: N.ED 17:25 → SUATTDRO 07-28 00:04 → N.EDINP 07-28 00:04 → N.ICU 07-28 02:02 → N.2E 07-29 14:59 → N.ICU 08-01 12:47 → N.CC 08-05 22:36
PROVIDERS: ADMIT Internal Medicine; ATTEND Internal Medicine